=== PATIENT | female | born 2000 ===

== ENCOUNTER 2020-09-13 14:44 | Emergency (ER) | payer MEDICAID ==
--- NOTE | 2020-09-13 15:49 | Emergency Department Report ---
ED Female HPI - General Chief complaint: Vaginal Bleeding Stated complaint: 2MONTHS /BLEEDING Time Seen by Provider: 09/13/20 15:44 Source: patient Mode of arrival: Ambulatory Limitations: No Limitations - History of Present Illness Initial comments: 20-year-old G1, P0 with a last menstrual period of 06/23/20 at approximately 8 weeks gestation presents the ED complaining of lower pelvic cramping with vaginal bleed that began today after she tripped while she was at [employer]. Patient states she did not fall but tripped. Patient states pain began after tripping and bleeding is about moderate. Patient states she took a home test around [place] that was positive and has not been to the OB yet MD Complaint: vaginal bleeding, pelvic pain Severity scale (0 -10): 5 Quality: cramping Consistency: intermittent Improves with: none Worsens with: none Are you Now?: Yes Associated Symptoms: denies: nausea/vomiting, fever/chills, hematuria, shortness of breath, weakness - Related Data Previous Rx's Medication Instructions Recorded Last Taken Type Acetaminophen/Codeine [Tylenol 1 tab PO Q6H #12 tab 09/13/20 Unknown Rx /Codeine # 3 tab] Allergies Allergy/AdvReac Type Severity Reaction Status Date / Time No Known Allergies Allergy Unverified 09/13/20 15:28 ED Review of Systems ROS: Stated complaint: 2MONTHS /BLEEDING Other details as noted in HPI Comment: All other systems reviewed and negative ED Past Medical Hx - Past Medical History Previous Medical History?: No - Surgical History Past Surgical History?: No - Medications Home Medications: Home Medications Medication Instructions Recorded Confirmed Last Taken Type Acetaminophen/Codeine [Tylenol 1 tab PO Q6H #12 tab 09/13/20 Unknown Rx /Codeine # 3 tab] ED Physical Exam - General Limitations: No Limitations General appearance: alert, in no apparent distress - Head Head exam: Present: atraumatic, normocephalic - Eye Eye exam: Present: normal appearance - ENT ENT exam: Present: mucous membranes moist - Neck Neck exam: Present: normal inspection - Respiratory Respiratory exam: Present: normal lung sounds bilaterally. Absent: respiratory distress - Cardiovascular Cardiovascular Exam: Present: regular rate, normal rhythm. Absent: systolic murmur, diastolic murmur, rubs, gallop - GI/Abdominal GI/Abdominal exam: Present: soft, normal bowel sounds. Absent: distended, tenderness, guarding, rebound, mass - Extremities Exam Extremities exam: Present: normal inspection - Back Exam Back exam: Present: normal inspection - Neurological Exam Neurological exam: Present: alert, oriented X3 - Psychiatric Psychiatric exam: Present: normal affect, normal mood - Skin Skin exam: Present: warm, dry, intact, normal color. Absent: rash ED Course Vital Signs 09/13/20 09/13/20 15:25 21:37 Temperature 98.6 F 98 F Pulse Rate 84 78 Respiratory 16 16 Rate Blood Pressure 123/94 Blood Pressure 116/78 [Left] O2 Sat by Pulse 99 100 Oximetry - Reevaluation(s) Reevaluation #1: Patient states that pelvic pain is getting worse. She is crying due to pain. Tylenol with codeine ordered for patient. Ultrasound still pending. Patient in wheelchair in the [facility] waiting room 09/13/20 17:46 ED Medical Decision Making - Lab Data Result diagrams: 09/13/20 15:59 09/13/20 15:59 - Radiology Data Radiology results: report reviewed, image reviewed ULTRASOUND OBSTETRIC INDICATION / CLINICAL INFORMATION: Heavy vaginal bleeding. Clinical Gestational Age (GA) in weeks, days: Unknown TECHNIQUE: Transabdominal. Transvaginal COMPARISON: None available. FINDINGS: Uterus: The uterus measures 9.3 x 4.3 x 5.6 cm. No focal uterine mass identified. The endometrial complex is homogeneously mildly thickened measuring 15 mm in caliber. No gestational sac identified within the uterus. ADNEXA: Both ovaries are well-visualized and have a normal sonographic appearance. Color Doppler demonstrates normal ovarian blood flow bilaterally. FREE FLUID: Trace free fluid is present in the cul-de-sac. ADDITIONAL FINDINGS: None. IMPRESSION: 1. No evidence of gestational sac within the uterus. Endometrial complex is mildly thickened. This is nonspecific and could indicate recent spontaneous versus very early . Correlation with hCG levels is recommended. 2. No adnexal mass. Both ovaries appear unremarkable. Signer Name: Naomy Alvarado MD Signed: 09/13/2020 9:01 PM Workstation Name: [id number] Transcribed By: Dictated By: Naomy Alvarado MD Electronically Authenticated By: Naomy Alvarado MD Signed Date/Time: 09/13/202100 - Medical Decision Making 20-year-old female presents to ED with spontaneous complete miscarriage ED course: Pt received ultra sound, CBC, urinalysis, test and quantitative ED All labs within normal limits, quantitative slightly depleted for dates Ultrasound shows no intrauterine . See reported above Vital signs normalized patient is in no acute distress. I discussed with the patient if follow-up with her [facility]. I discussed all labs and ultrasound findings with the patient. Patient understands instructions and will follow-up with OB within 3 days. Discussed breast and take all medications as prescribed. Bleeding precautions discussed with the patient and her who was with the patient at the time of discharge and discussion. I discussed with the patient that he if bleeding worsens or new symptoms develop to return to ED immediately Patient feeling much better and pain resolved prior to discharge Critical care attestation.: If time is entered above; I have spent that time in minutes in the direct care of this critically ill patient, excluding procedure time. ED Disposition Clinical Impression: Spontaneous , Complete Disposition: TO HOME OR SELFCARE Is pt being admited?: No Does the pt Need Aspirin: No Condition: Stable Instructions: Miscarriage, [id number], Miscarriage, Managing Loss Additional Instructions: Make sure to follow up with the primary care physician as discussed. Take all your medications as you've been prescribed. If you have any worsening symptoms or develop new symptoms please return to ED immediately. Prescriptions: Acetaminophen/Codeine [Tylenol /Codeine # 3 tab] 1 tab PO Q6H #12 tab Referrals: PRIMARY CAREMD [Primary Care Provider] - 3-5 Days [facility] [Provider Group] - 3-5 Days [facility] [Provider Group] - 3-5 Days Forms: Accompanied Note, Work/School Release Form(ED) Time of Disposition: 21:11 Print Language: MONGOLIAN
[2020-09-13 16:17] LABS: Basophils % (Auto) 0.4 % (0.0-1.8); Eosinophils # (Auto) 0.1 K/mm3 (0.0-0.4); Eosinophils % (Auto) 1.9 % (0.0-4.3); Hematocrit 40.6 % (30.3-42.9); Hemoglobin 13.3 gm/dl (10.1-14.3); Lymphocytes # (Auto) 1.6 K/mm3 (1.2-5.4); Lymphocytes % (Auto) 21.6 % (13.4-35.0); Mean Corpuscular HGB Conc 33 % (30-34); Mean Corpuscular Volume 87 fl (79-97); Monocytes # (Auto) 0.5 K/mm3 (0.0-0.8); Monocytes % (Auto) 7.1 % (0.0-7.3); Platelet Count 197 K/mm3 (140-440); Red Blood Count 4.68 M/mm3 (3.65-5.03); Red Cell Distribution Width 15.1 % (13.2-15.2)
[2020-09-13 16:19] LABS: Bilirubin,Urine NEG (Negative); Blood,Urine MOD (Negative); Color,Urine Colorless (Yellow); Protein,Urine <15 mg/dL mg/dL (Negative); Urobilinogen,Urine < 2.0 mg/dL (<2.0); WBC,Urine < 1.0 /HPF (0.0-6.0)
[2020-09-13 16:30] LABS: Blood Urea Nitrogen 7 mg/dL (7-17); Calcium 9.1 mg/dL (8.4-10.2); Hemolysis Index 11
[2020-09-13 16:48] LABS: BUN/Creatinine Ratio 18
[2020-09-13] MEDS ORDERED: ACETAMINOPHEN W/CODEINE 300-30 MG TAB PO ONE (17:51)
--- NOTE | 2020-09-13 21:05 | Ultrasound Report ---
ULTRASOUND OBSTETRIC INDICATION / CLINICAL INFORMATION: Heavy vaginal bleeding. Clinical Gestational Age (GA) in weeks, days: Unknown TECHNIQUE: Transabdominal. Transvaginal COMPARISON: None available. FINDINGS: Uterus: The uterus measures 9.3 x 4.3 x 5.6 cm. No focal uterine mass identified. The endometrial com plex is homogeneously mildly thickened measuring 15 mm in caliber. No gestational sac identified within the uterus. ADNEXA: Both ovaries are well-visualized and have a normal sonographic appearance. Color Doppler demo nstrates normal ovarian blood flow bilaterally. FREE FLUID: Trace free fluid is present in the cul-de-sac. ADDITIONAL FINDINGS: None. IMPRESSION: 1. No evidence of gestational sac within the uterus. Endometrial complex is mildly thickened. This is nonspecific and could indicate recent spontaneous versus very early . Correlation with hCG levels is recommended. 2. No adnexal mass. Both ovaries appear unremarkable. Signer Name: Naomy Alvarado MD Signed: 09/13/2020 9:01 PM Workstation Name: [id number]
[2020-09-13 21:41] VITALS: BP 116/78
== END 2020-09-13 21:41 | disposition home or self-care (01) ==
LOC: ED 14:44
DX: O03.9 Complete or unspecified spontaneous abortion without complication (principal); Z3A.01 Less than 8 weeks gestation of pregnancy; Z79.899 Other long term (current) drug therapy
CPT/HCPCS: 36415; 76801; 76817; 80048; 81001; 84702; 85025; 86900; 86901

== ENCOUNTER 2021-08-25 00:49 | Inpatient (IN) | payer OTHER ==
[2021-08-25 02:40] LABS: Bacteria,Urine 1+ /HPF (Negative); Bilirubin,Urine NEG (Negative); Blood,Urine NEG (Negative); Color,Urine Yellow (Yellow); Mucus,Urine FEW /HPF; Urobilinogen,Urine < 2.0 mg/dL (<2.0)
--- NOTE | 2021-08-25 04:24 | Ultrasound Report ---
ULTRASOUND OBSTETRIC LIMITED ULTRASOUND BIOPHYSICAL PROFILE INDICATION / CLINICAL INFORMATION: TRI. well-being. Clinical Gestational Age (GA) in weeks, days: 38, 6 TECHNIQUE: Transabdominal. COMPARISON: None available. FINDINGS: BREATHING MOVEMENT = 2 GROSS BODY MOVEMENT = 2 TONE = 2 QUALITATIVE AMNIOTIC FLUID VOLUME = 2 TOTAL BIOPHYSICAL SCORE = 8/8 HEART RATE (beats per minute): 109 AMNIOTIC FLUID INDEX (cm) = 19.5 (normal = 7-24 cm) PRESENTATION: Cephalic. ADDITIONAL FINDINGS: None. IMPRESSION: 1. Biophysical Score = 8/8 2. Normal amniotic fluid index of 19.5 cm. Signer Name: Adonis Krueger MD Signed: 08/25/2021 4:19 AM Workstation Name: [id number]
[2021-08-25] MEDS ORDERED: LACTATED RINGERS 1,000 ML IV SCH (05:00)
[2021-08-25] MEDS ORDERED: LIDOCAINE (2%) 20 MG/1 ML VIAL 20 ML MDV INFILTRATI ONE (05:00)
[2021-08-25] MEDS ORDERED: OXYTOCIN 10 UNIT/1 ML INJ IM PRN (05:00)
[2021-08-25] MEDS ORDERED: ePHEDrine SULFATE 50 MG/1 ML INJ IV PRN ×2 (05:00→19:23)
[2021-08-25] MEDS ORDERED: OXYTOCIN DRIP 30 UNITS/500 ML BAG IV SCH ×2 (05:00)
[2021-08-25] MEDS ORDERED: TERBUTALINE 1 MG/1 ML INJ SUB-Q PRN (05:00)
[2021-08-25] MEDS ORDERED: NalbUPHINE 10 MG/1 ML INJ IV PRN (05:00)
[2021-08-25] MEDS ORDERED: CARBOPROST TROMETHAMINE 250 MCG/1 ML INJ IM PRN (05:00)
[2021-08-25] MEDS ORDERED: VANCOMYCIN/NS 1 GM/250 ML 1 GM/250 ML BAG IV SCH (05:00)
[2021-08-25] MEDS ORDERED: LOPERAMIDE 2 MG CAP PO PRN (05:00)
[2021-08-25] MEDS ORDERED: miSOPROStol 200 MCG TAB PR PRN (05:00)
[2021-08-25] MEDS ORDERED: METHYLERGONOVINE MALEATE 0.2 MG/ML VIAL IM PRN (05:00)
[2021-08-25] MEDS ORDERED: ACETAMINOPHEN 325 MG TAB PO PRN (05:00)
--- NOTE | 2021-08-25 05:12 | History and Physical Report ---
History of Present Illness Date of examination: 08/25/21 Date of admission: 08/25/2021 Chief complaint: Decreased movement History of present illness: 21 year old female presents to L&D complaining of decreased movement since yesterday. Patient denies leaking of fluid or vaginal bleeding. Patient denies falls or abdominal trauma. Patient received care at [facility]; partial record is available (full record has been requested). LMP 11/26/20. EDC 09/02/2021. significant for the following: underweight, GBS positive. labs results are not available at this time but they have been requeste d. Past History Past Medical History: other (history of 2 miscarriages) Past Surgical History: no surgical history [facility] History: denies: chlamydia, gonorrhea, hepatitis B, hepatitis C, herpes, HIV, syphilis, trichomonas Family/Genetic History: diabetes, congenital heart defect (patient's sister was born with congenital heart defect) Social history: lives with family, full code. denies: smoking, alcohol abuse, prescription drug abuse, IV drug use - Obstetrical History Expected Date of Delivery: 09/02/21 Actual Gestation: 38 Week(s) 6 Day(s) : 3 Para: 0 Hx # Term Pregnancies: 0 Number of Pregnancies: 0 Spontaneous Abortions: 2 Induced : 0 Number of Living Children: 0 Medications and Allergies Allergies Allergy/AdvReac Type Severity Reaction Status Date / Time Penicillins Allergy Unknown Itching Verified 08/25/21 05:14 Active Meds: Active Medications Acetaminophen (Acetaminophen 325 Mg Tab) 650 mg PO Q4H PRN PRN Reason: Pain, Mild (1-3) Carboprost Tromethamine (Carboprost Tromethamine 250 Mcg/1 Ml Inj) 250 mcg IM ONCE PRN PRN Reason: Uterine Bleeding Ephedrine Sulfate (Ephedrine Sulfate 50 Mg/1 Ml Inj) 10 mg IV Q2M PRN PRN Reason: Hypotension Fentanyl (Fentanyl 100 Mcg/2 Ml Inj) 100 mcg IV Q2H PRN PRN Reason: Pain,Severe (7-10) LABOR PAIN Oxytocin/Sodium Chloride (Pitocin/Ns 30 Unit/500ml) 30 units in 500 mls @ 2 mls/hr IV TITR JAM; Protocol Lactated Ringer's (Lactated Ringers) 1,000 mls @ 125 mls/hr IV DIRECT JAM Oxytocin/Sodium Chloride (Pitocin/Ns 30 Unit/500ml) 30 units in 500 mls @ 40 mls/hr IV TITR JAM; Protocol Vancomycin HCl (Vancomycin/Ns 1 Gm/250 Ml) 1 gm in 250 mls @ 167.007 mls/hr IV Q12H JAM; Protocol Loperamide HCl (Loperamide 2 Mg Cap) 2 mg PO ONCE PRN PRN Reason: give with Hemabate Methylergonovine Maleate (Methylergonovine Maleate 0.2 Mg/Ml Vial) 0.2 mg IM ONCE PRN PRN Reason: Uterine Bleeding Misoprostol (Misoprostol 200 Mcg Tab) 800 mcg MI ONCE PRN PRN Reason: Uterine Bleeding Nalbuphine HCl (Nalbuphine 10 Mg/1 Ml Inj) 10 mg IV Q2H PRN PRN Reason: Pain, Moderate (4-6) Oxytocin (Oxytocin 10 Unit/1 Ml Inj) 10 unit IM ONCE PRN PRN Reason: Uterine Bleeding Terbutaline Sulfate (Terbutaline 1 Mg/1 Ml Inj) 0.25 mg SUB-Q ONCE PRN PRN Reason: Hyperstimulation/Hypertonicity Review of Systems All systems: negative (contractions, decreased movement) - Vital Signs Vital signs: Vital Signs Pulse BP 81 113/68 08/25/21 01:17 08/25/21 01:17 Temp Pulse Resp BP Pulse Ox 81 113/68 08/25/21 01:08/25/21 01:17 - Physical Exam Abdomen: Positive: normal appearance, soft. Negative: distention, tenderness, guarding, rigidity Genitourinary (Female): Positive: normal external genitalia, normal perenium. Negative: perineal/vulvar lesions Vagina: Positive: normal moisture Uterus: Positive: enlarged. Negative: tender Anus/Rectum: Positive: normal perianal skin Extremities: Negative: tenderness, edema - Obstetrical FHR: category 2 FHR comments: FHR baseline 115 with minimal to moderate variability and rare acceleration. Occasional variable FHR deceleration. Uterine Contraction Monitor Mode: External Cervical Dilatation: 2 Cervical Effacement Percentage: 70 (Cephalic presentation confirmed by US) station: 0 Uterine Contraction Pattern: Irregular Uterine Contraction Intensity: Mild Results Abnormal lab results 08/25/21 Range/Units 01:16 Urine WBC (Auto) 45.0 H (0.0-6.0) /HPF U Epithel Cells (Auto) 19.0 H (0-13.0) /HPF All other labs normal. Assessment and Plan A: at 38 weeks, 6 days gestation. Early labor. GBS positive (allergic to PCN). Category 2 FHR tracing. Decreased movement. P: Admit. Continuous EFM. Lateral positioning; IV fluid bolus. GBS prophylaxis. Full record has been requested. Augmentation of labor with Pitocin once full record has been received. Consulted with Dr. Esqueda re: this patient; in agreement with POC.
[2021-08-25] MEDS ORDERED: LACTATED RINGERS 1,000 ML IV ONE (05:23)
[2021-08-25 06:49] LABS: Hematocrit 30.9 % (30.3-42.9); Hemoglobin 9.5 gm/dl (10.1-14.3); Mean Corpuscular HGB Conc 31 % (30-34); Mean Corpuscular Volume 72 fl (79-97); Platelet Count 235 K/mm3 (140-440); Red Cell Distribution Width 18.6 % (13.2-15.2)
[2021-08-25] MEDS ORDERED: hydrOXYzine PAMOATE 25 MG CAP PO STA (09:14)
--- NOTE | 2021-08-25 11:11 | Progress Note ---
Assessment and Plan A: IUP @ 38 6/7 Weeks Category I Tracing Decreased Movement Pruritus + GBS with PCN Allergy P: AROM Internals X 2 Continue Pitocin Induction Vistaril 25mg Po x 1 dose Continue GBS Prophylaxis with Vancomycin Subjective - Subjective Date of service: 08/25/21 Patient reports: new complaints (Around 9AM; patient complians of swelling of lips, itching of neck and back; and a little itching of throat), contractions (mild) Objective - Vital Signs Vital Signs: Vital Signs - 12hr 08/25/21 08/25/21 08/25/21 06:33 06:40 Temperature Pulse Rate 81 64 Respiratory Rate Blood Pressure 113/68 Blood Pressure [Right] O2 Sat by Pulse 100 Oximetry O2 Sat by Pulse 100 Oximetry [ Bilateral Throughout] 08/25/21 08/25/21 08/25/21 06:45 06:50 06:55 Temperature Pulse Rate 63 65 64 Respiratory Rate Blood Pressure Blood Pressure [Right] O2 Sat by Pulse 100 99 99 Oximetry O2 Sat by Pulse Oximetry [ Bilateral Throughout] 08/25/21 08/25/21 08/25/21 06:59 07:00 07:01 Temperature 98.7 F Pulse Rate 64 68 Respiratory 16 Rate Blood Pressure 120/91 Blood Pressure 120/91 [Right] O2 Sat by Pulse 100 99 Oximetry O2 Sat by Pulse 100 Oximetry [ Bilateral Throughout] 08/25/21 08/25/21 08/25/21 07:05 07:10 07:15 Temperature Pulse Rate 62 69 63 Respiratory Rate Blood Pressure Blood Pressure [Right] O2 Sat by Pulse 99 100 99 Oximetry O2 Sat by Pulse Oximetry [ Bilateral Throughout] 08/25/21 08/25/21 08/25/21 07:20 07:25 07:30 Temperature Pulse Rate 65 70 69 Respiratory Rate Blood Pressure Blood Pressure [Right] O2 Sat by Pulse 99 99 99 Oximetry O2 Sat by Pulse Oximetry [ Bilateral Throughout] 08/25/21 08/25/21 08/25/21 07:35 07:40 07:45 Temperature Pulse Rate 69 67 82 Respiratory Rate Blood Pressure Blood Pressure [Right] O2 Sat by Pulse 99 99 98 Oximetry O2 Sat by Pulse Oximetry [ Bilateral Throughout] 08/25/21 08/25/21 08/25/21 07:50 07:55 08:00 Temperature Pulse Rate 75 76 75 Respiratory Rate Blood Pressure Blood Pressure [Right] O2 Sat by Pulse 100 99 100 Oximetry O2 Sat by Pulse Oximetry [ Bilateral Throughout] 08/25/21 08/25/21 08/25/21 08:05 08:10 08:15 Temperature Pulse Rate 72 69 74 Respiratory Rate Blood Pressure Blood Pressure [Right] O2 Sat by Pulse 100 99 99 Oximetry O2 Sat by Pulse Oximetry [ Bilateral Throughout] 08/25/21 08/25/21 08/25/21 08:20 08:25 08:30 Temperature Pulse Rate 69 69 70 Respiratory Rate Blood Pressure Blood Pressure [Right] O2 Sat by Pulse 99 99 98 Oximetry O2 Sat by Pulse Oximetry [ Bilateral Throughout] 08/25/21 08/25/21 08/25/21 08:35 08:39 08:44 Temperature Pulse Rate 65 76 75 Respiratory Rate Blood Pressure Blood Pressure [Right] O2 Sat by Pulse 100 88 98 Oximetry O2 Sat by Pulse Oximetry [ Bilateral Throughout] 08/25/21 08/25/21 08/25/21 08:49 08:54 08:59 Temperature Pulse Rate 80 79 81 Respiratory Rate Blood Pressure 107/69 Blood Pressure [Right] O2 Sat by Pulse 99 99 98 Oximetry O2 Sat by Pulse Oximetry [ Bilateral Throughout] 08/25/21 08/25/21 08/25/21 09:04 09:09 09:26 Temperature Pulse Rate 79 83 82 Respiratory Rate Blood Pressure Blood Pressure [Right] O2 Sat by Pulse 99 98 98 Oximetry O2 Sat by Pulse Oximetry [ Bilateral Throughout] 08/25/21 08/25/21 08/25/21 09:31 09:36 09:41 Temperature Pulse Rate 77 81 71 Respiratory Rate Blood Pressure Blood Pressure [Right] O2 Sat by Pulse 98 99 100 Oximetry O2 Sat by Pulse Oximetry [ Bilateral Throughout] 08/25/21 08/25/21 08/25/21 09:46 09:51 09:56 Temperature Pulse Rate 84 87 80 Respiratory Rate Blood Pressure Blood Pressure [Right] O2 Sat by Pulse 100 98 99 Oximetry O2 Sat by Pulse Oximetry [ Bilateral Throughout] 08/25/21 08/25/21 08/25/21 10:01 10:06 10:11 Temperature Pulse Rate 82 73 73 Respiratory Rate Blood Pressure 117/65 Blood Pressure [Right] O2 Sat by Pulse 98 98 99 Oximetry O2 Sat by Pulse Oximetry [ Bilateral Throughout] 08/25/21 08/25/21 08/25/21 10:16 10:21 10:26 Temperature Pulse Rate 84 74 61 Respiratory Rate Blood Pressure Blood Pressure [Right] O2 Sat by Pulse 98 99 100 Oximetry O2 Sat by Pulse Oximetry [ Bilateral Throughout] 08/25/21 08/25/21 08/25/21 10:30 10:31 10:47 Temperature Pulse Rate 72 74 77 Respiratory Rate Blood Pressure Blood Pressure [Right] O2 Sat by Pulse 92 100 98 Oximetry O2 Sat by Pulse Oximetry [ Bilateral Throughout] 08/25/21 08/25/21 08/25/21 10:52 10:57 11:02 Temperature Pulse Rate 79 77 71 Respiratory Rate Blood Pressure Blood Pressure [Right] O2 Sat by Pulse 100 100 100 Oximetry O2 Sat by Pulse Oximetry [ Bilateral Throughout] - Exam Breasts: normal Cardiovascular: Regular rate Lungs: Clear to auscultation, Normal air movement Abdomen: Present: normal appearance, soft, normal bowel sounds Uterus: Present: normal, firm, fundal height above umbilicus FHR: category 1 Uterine Contraction Monitor Mode: Internal Cervical Dilatation: 2 (Large amount of clear fluid upon AROM at 1055) Cervical Effacement Percentage: 80 station: -1 Uterine Contraction Frequency (min): 1-2.5 min Uterine Contraction Pattern: Regular Uterine Tone Measurement Phase: Resting Uterine Contraction Intensity: Mild Extremities: normal - Labs Labs: Abnormal Labs 08/25/21 08/25/21 01:16 06:32 Hgb 9.5 L MCV 72 L MCH 22 L RDW 18.6 H Urine WBC (Auto) 45.0 H U Epithel Cells (Auto) 19.0 H Laboratory Results - last 24 hr 08/25/21 08/25/21 08/25/21 01:16 06:32 06:32 WBC 8.4 RBC 4.30 Hgb 9.5 L Hct 30.9 MCV 72 L MCH 22 L MCHC 31 RDW 18.6 H Plt Count 235 Urine Color Yellow Urine Turbidity Slightly-cloudy Urine pH 6.0 Ur Specific [place] 1.020 Urine Protein 30 mg/dl Urine Glucose (UA) Neg Urine Ketones Neg Urine Blood Neg Urine Nitrite Neg Urine Bilirubin Neg Urine Urobilinogen < 2.0 Ur Leukocyte Esterase Sm Urine WBC (Auto) 45.0 H Urine RBC (Auto) 2.0 U Epithel Cells (Auto) 19.0 H Urine Bacteria (Auto) 1+ Urine Mucus Few Syphilis IgG Antibody Nonreactive Blood Type Antibody Screen 08/25/21 06:32 WBC RBC Hgb Hct MCV MCH MCHC RDW Plt Count Urine Color Urine Turbidity Urine pH Ur Specific [place] Urine Protein Urine Glucose (UA) Urine Ketones Urine Blood Urine Nitrite Urine Bilirubin Urine Urobilinogen Ur Leukocyte Esterase Urine WBC (Auto) Urine RBC (Auto) U Epithel Cells (Auto) Urine Bacteria (Auto) Urine Mucus Syphilis IgG Antibody Blood Type O POSITIVE Antibody Screen Negative
[2021-08-25] MEDS: fentaNYL 100 MCG/2 ML INJ IV PRN ×2 (14:45→17:30)
[2021-08-25] MEDS ORDERED: NALOXONE 2 MG/2 ML INJ IV PRN (19:23)
[2021-08-25] MEDS ORDERED: fentaNYL-BUPIV 2 MCG/ML-0.125% 200 MCG/100 ML BAG EPIDURAL SCH (20:00)
--- NOTE | 2021-08-25 20:08 | Anesthesia Consultation ---
Anesthesia Consult and Med Hx Date of service: 08/25/21 - Airway Anesthetic Teeth Evaluation: Good ROM Head & Neck: Adequate Mental/Hyoid Distance: Adequate Mallampati Class: Class II Intubation Access Assessment: Good - Pulmonary Exam CTA: Yes - Cardiac Exam Cardiac Exam: RRR - Pre-Operative Health Status ASA Pre-Surgery Classification: ASA2 Proposed Anesthetic Plan: Epidural - Pulmonary Hx Smoking: No Hx Asthma: No Hx Respiratory Symptoms: No SOB: No COPD: No Home Oxygen Therapy: No Hx Pneumonia: No Hx Sleep Apnea: No - Cardiovascular System Hx Hypertension: No Hx Coronary Artery Disease: No Hx Heart Attack/AMI: No Hx Angina: No Hx Percutaneous Transluminal Coronary Angioplasty (PTCA): No Hx Cardia Arrhythmia: No Hx Pacemaker: No Hx Internal Defibrillator: No Hx Valvular Heart Disease: No Hx Heart Murmur: No Hx Peripheral Vascular Disease: No - Central Nervous System Hx Neuromuscular Disorder: No Hx Seizures: No CVA: No Hx Back Pain: Yes Hx Psychiatric Problems: No - Gastrointestinal Hx Ulcer: No Hx Gastroesophageal Reflux Disease: No - Endocrine Hx Renal Disease: No Hx End Stage Renal Disease: No Hx Cirrhosis: No Hx Liver Disease: No Hx Insulin Dependent Diabetes: No Hx Non-Insulin Dependent Diabetes: No Hx Thyroid Disease: No Hx Hypothyroidism: No Hx Hyperthyroidism: No - Hematic Hx Anemia: No Hx Sickle Cell Disease: No - Other Systems Hx Alcohol Use: No Hx Substance Use: No Hx Cancer: No Hx Obesity: No
--- NOTE | 2021-08-25 20:10 | Progress Note ---
Labor Epidural - Labor Epidural Start Time: 19:29 Stop Time: 19:52 Performed by:: GILA SALAS Procedure: Patient is requesting epidural for labor pain. H&P and labs reviewed. Procedure explained, questions answered, consent obtained. Patient placed in sitting position with monitors applied. Timeout performed immediately before start of procedure. Prep/drape in usual sterile fashion. Skin localized 3 mL 1% lidocaine at L[3]-L[4] interspace. 17-gauge Touhy epidural needle advanced to SOFI with saline x 3attempts at [6] cm. No blood/CSF noted via epidural needle. Epidural catheter advanced to [9] cm. Negative aspiration for blood and CSF via catheter, negative response to test dose 3 ml 1.5% lidocaine w/ epi. Sterile dressing applied followed by tape reinforcement. Patient tolerated procedure well. No immediate complications noted.
[2021-08-25] MEDS ORDERED: MINERAL OIL 30 ML ORAL LIQD ONE (20:12)
[2021-08-25] MEDS ORDERED: HYDROcodone/ACETAMINOPHEN 5-325 MG TAB PO PRN (21:11)
[2021-08-25] MEDS ORDERED: diphenhydrAMINE 25 MG CAP PO PRN (21:11)
[2021-08-25] MEDS ORDERED: BENZOCAINE/MENTHOL 20/0.5% TOP SPRAY 56 GM TP PRN (21:11)
[2021-08-25] MEDS ORDERED: WITCH HAZEL/ GLYCERIN PAD TP PRN (21:11)
[2021-08-25] MEDS ORDERED: LANOLIN/ZINC/DIMETHICONE (LANSINOH) 7 GM TP PRN (21:11)
--- NOTE | 2021-08-25 21:20 | Procedure Note ---
OB Delivery Note - Delivery Date of Delivery: 08/25/21 (2040) Surgeon: DARRYL WILSON Estimated blood loss: 200cc - Vaginal Delivery presentation: vertex, compound Intrapartum events: none Delivery induction: oxytocin Delivery augmentation: rupture of membranes, pitocin Delivery monitor: internal FHT, internal uterine Route of delivery: Delivery placenta: spontaneous Delivery cord: 3 umbilical vessels Episiotomy: none Delivery laceration: 1st degree Delivery repair: vicryl Anesthesia: epidural Delivery comments: of a live 6'12 male infant with a left hand compound presentation over first degree right labial and vaginal lacerations under epidural anesthesia at 2040 on 08/25/2021. directly to maternal abd/chest, skin to skin contact. Vaginal lacerations repaired with 2-[address]-1. Spontaneous delivery of placenta complete and intact with Pierre side presenting at 2055. Fundus is firm and midline located 4 below the U. Lochia is scant. GBS prophylaxis x 1. Delayed cord clamping and cutting; Cord cut by Father of the Baby. Cord blood collected; Placenta discarded. - A at 1 minute: 8 at 5 minutes: 9 Infant Gender: Male (6'12)
[2021-08-25] MEDS: IBUPROFEN 600 MG TAB PO SCH (22:09)
[2021-08-26] MEDS: IBUPROFEN 600 MG TAB PO SCH ×4 (03:52→23:06)
--- NOTE | 2021-08-26 09:27 | Progress Note ---
Assessment and Plan A: S/P P: Continue routine pp orders D/C home tomm if stable Subjective - Subjective Date of service: 08/26/21 Principal diagnosis: s/p Patient reports: appetite normal, voiding normally, pain well controlled, ambulating normally : doing well, bottle feeding Objective - Vital Signs Latest vital signs: Vital Signs Temp Pulse Resp BP BP Pulse Ox Pulse Ox 08/26/21 07:41 98.4 F 69 20 96/68 99 08/26/21 07:30 98 08/26/21 05:00 97.7 F 70 18 114/69 97 08/26/21 03:52 18 08/25/21 23:47 98.5 F 80 103/61 08/25/21 23:34 100 08/25/21 22:08 75 99 08/25/21 22:03 75 99 08/25/21 21:58 77 106/67 99 08/25/21 21:53 80 100 08/25/21 21:48 82 99 08/25/21 21:44 99.1 F 18 08/25/21 21:43 81 99 08/25/21 21:38 73 99 08/25/21 21:33 78 99 08/25/21 21:28 83 114/61 98 08/25/21 21:23 80 99 08/25/21 21:20 90 93 08/25/21 21:18 75 100 08/25/21 21:13 90 100 08/25/21 21:08 86 100 08/25/21 21:03 90 100 08/25/21 20:59 80 L 08/25/21 20:58 93 H 116/56 08/25/21 20:38 113 H 142/100 08/25/21 20:30 103 H 130/77 98 08/25/21 20:25 85 97 08/25/21 20:23 104 H 138/64 08/25/21 20:20 94 H 98 08/25/21 20:15 88 99 08/25/21 20:13 100 H 127/79 08/25/21 20:10 99 H 94 08/25/21 20:09 84 131/81 08/25/21 20:05 82 99 08/25/21 20:04 81 123/77 08/25/21 20:00 81 98 08/25/21 19:57 87 129/70 01/17/22 19:55 92 H 130/79 98 08/25/21 19:53 92 H 127/75 08/25/21 19:51 96 H 127/79 08/25/21 19:50 98 H 99 08/25/21 19:48 99 H 93 08/25/21 19:45 86 99 08/25/21 19:40 91 H 97 08/25/21 19:35 95 H 99 08/25/21 19:33 96 H 142/100 08/25/21 19:30 97 H 95 08/25/21 19:25 94 H 99 08/25/21 19:20 93 H 100 08/25/21 19:15 93 H 99 08/25/21 19:10 85 100 08/25/21 19:06 98.3 F 19 08/25/21 19:05 91 H 100 08/25/21 19:03 100 08/25/21 18:52 85 142/87 08/25/21 18:39 98.3 F 08/25/21 17:09 97.8 F 08/25/21 17:06 86 99 08/25/21 17:01 76 99 08/25/21 16:56 93 H 97 08/25/21 16:52 80 144/82 94 08/25/21 16:51 83 97 08/25/21 16:46 73 97 08/25/21 16:41 91 H 99 08/25/21 16:36 85 98 08/25/21 16:31 85 98 08/25/21 16:26 80 99 08/25/21 16:21 93 H 98 08/25/21 16:16 74 100 08/25/21 16:11 70 98 08/25/21 16:06 79 100 08/25/21 16:01 80 99 08/25/21 15:56 75 100 08/25/21 15:51 82 136/94 99 08/25/21 15:46 78 99 08/25/21 15:41 77 98 08/25/21 15:36 70 99 08/25/21 15:31 77 99 08/25/21 15:26 74 99 08/25/21 15:21 74 98 08/25/21 15:16 75 99 08/25/21 15:11 78 97 08/25/21 15:06 75 98 08/25/21 15:01 76 97 08/25/21 14:58 78 17 112/70 98 08/25/21 14:56 80 97 08/25/21 14:51 78 112/70 98 08/25/21 14:46 79 100 08/25/21 14:41 78 100 08/25/21 14:36 74 99 08/25/21 14:31 76 99 08/25/21 14:26 71 99 08/25/21 14:21 76 98 08/25/21 14:16 77 99 08/25/21 14:11 72 99 08/25/21 14:06 80 99 08/25/21 14:01 72 98 08/25/21 13:56 74 100 08/25/21 13:51 83 115/74 96 08/25/21 13:50 74 92 08/25/21 13:46 74 98 08/25/21 13:41 77 98 08/25/21 13:39 98.3 F 18 08/25/21 13:22 65 98 08/25/21 13:17 65 99 08/25/21 13:12 75 99 08/25/21 13:07 75 100 08/25/21 13:02 75 100 08/25/21 12:57 68 98 08/25/21 12:52 80 118/77 100 08/25/21 12:51 68 111/71 08/25/21 12:47 75 98 08/25/21 12:42 75 98 08/25/21 12:37 66 98 08/25/21 12:32 75 98 08/25/21 12:27 67 99 08/25/21 12:22 82 100 08/25/21 12:17 70 100 08/25/21 12:12 72 100 08/25/21 12:07 78 99 08/25/21 12:02 77 100 08/25/21 11:57 77 99 08/25/21 11:52 66 99 08/25/21 11:51 71 115/71 08/25/21 11:47 68 99 08/25/21 11:42 76 99 08/25/21 11:37 71 100 08/25/21 11:32 73 99 08/25/21 11:30 67 127/86 08/25/21 11:27 66 99 08/25/21 11:22 70 100 08/25/21 11:17 66 100 08/25/21 11:12 68 100 08/25/21 11:07 70 99 08/25/21 11:02 71 100 08/25/21 10:57 77 100 08/25/21 10:52 79 100 08/25/21 10:47 77 98 08/25/21 10:31 74 100 08/25/21 10:30 72 92 08/25/21 10:26 61 100 08/25/21 10:21 74 99 08/25/21 10:16 84 98 08/25/21 10:11 73 99 08/25/21 10:06 73 98 08/25/21 10:01 82 117/65 98 08/25/21 09:56 80 99 08/25/21 09:51 87 98 08/25/21 09:46 84 100 08/25/21 09:41 71 100 08/25/21 09:36 81 99 08/25/21 09:31 77 98 08/25/21 09:26 82 98 Intake and Output 08/25/21 08/26/21 08/26/21 22:59 06:59 14:59 Intake Total 62.167 240 Output Total 400 Balance -337.833 240 Intake: IV 62.167 PITOCin/NS 30 UNIT/500ML 62.167 30 units In 500 ml @ 2 mls/hr IV TITR JAM Rx#: [id number] Intake, Free Water 240 Output: Urine 400 Indwelling Catheter 400 Other: Total, Output Amount 400 # Voids Void 300 Estimated Blood Loss 200 - Exam Breasts: Present: normal Abdomen: Present: normal appearance, soft, normal bowel sounds Vulva: both: normal Uterus: Present: normal, firm, fundal height below umbilicus Extremities: Present: normal Incision: Present: normal, intact
--- NOTE | 2021-08-26 09:31 | Discharge Summary ---
Providers - Providers Date of Admission: 08/25/21 05:01 Date of discharge: 08/27/21 Attending physician: IWONA MEYERS Primary care physician: IWONA MEYERS Hospitalization Reason for admission: active labor, IUP at term Delivery: Episiotomy: none Laceration: 1st degree Incision: normal, intact Other procedures: none complications: none Discharge diagnosis: IUP at term delivered Carlos baby: male Hospital course: Pt was admitted to [facility] in labor and had a w/o pp complications. See H&P, delivery summary, and pp notes. Condition at discharge: Stable Disposition: HOME / SELF CARE / HOMELESS Plan - Discharge Medications Prescriptions: Ibuprofen [Motrin 600 MG tab] 600 mg PO Q6H PRN #30 tablet PRN Reason: Menstrual Cramps - Provider Discharge Summary Activity: routine, no sex for 6 weeks, no heavy lifting 4 weeks, no strenuous exercise Diet: routine Instructions: routine Additional instructions: [] Smoking cessation referral if applicable(refer to patient education folder for contact #) [] Refer to [facility]'s [facility] Booklet Call your doctor immediately for: * Fever > 100.5 * Heavy vaginal bleeding ( >1 pad per hour) * Severe persistent headache * Shortness of breath * Reddened, hot, painful area to leg or breast * Drainage or odor from incision. * Keep incision clean and dry at all times and follow doctor's instructions regarding bathing/showering - Follow up plan Follow up: IWONA MEYERS MD [Primary Care Provider] - 6 Weeks
[2021-08-26 09:51] LABS: Hematocrit 25.3 % (30.3-42.9); Hemoglobin 7.7 gm/dl (10.1-14.3)
[2021-08-26] MEDS: FERROUS SULFATE 325 MG TAB PO SCH ×2 (10:30→23:06)
[2021-08-26] MEDS: PRENATAL VIT27-FE FUMARATE-FOLIC ACID VIT TAB PO SCH (10:30)
--- NOTE | 2021-08-26 14:50 | Post Anesthesia Evaluation ---
- Post Anesthesia Evaluation Patient Participated: Yes Airway Patent: Yes Stable Respiratory Function: Yes Nausea/Vomiting: No Temp > 96.8F: Yes Pain Manageable: Yes Adequeate Hydration: Yes Anesthesia Complications: No Block Receding Appropriately: Yes Patient on Ventilator: No
[2021-08-26 21:27] LABS: Basophils % (Auto) 0.3 % (0.0-1.8); Eosinophils # (Auto) 0.1 K/mm3 (0.0-0.4); Eosinophils % (Auto) 0.7 % (0.0-4.3); Hematocrit 29.3 % (30.3-42.9); Hemoglobin 8.8 gm/dl (10.1-14.3); Lymphocytes # (Auto) 2.2 K/mm3 (1.2-5.4); Lymphocytes % (Auto) 16.2 % (13.4-35.0); Mean Corpuscular HGB Conc 30 % (30-34); Mean Corpuscular Volume 73 fl (79-97); Monocytes # (Auto) 0.9 K/mm3 (0.0-0.8); Monocytes % (Auto) 6.6 % (0.0-7.3); Platelet Count 217 K/mm3 (140-440); Red Blood Count 4.01 M/mm3 (3.65-5.03); Red Cell Distribution Width 19.1 % (13.2-15.2)
[2021-08-27] MEDS: IBUPROFEN 600 MG TAB PO SCH ×2 (05:32→12:11)
[2021-08-27] MEDS ORDERED: TETANUS,DIPH,PERTUSS(ACELL) VACCINE 0.5 ML SYRINGE IM ONE (06:00)
[2021-08-27 11:42] VITALS: BP 120/75
[2021-08-27] MEDS: PRENATAL VIT27-FE FUMARATE-FOLIC ACID VIT TAB PO SCH (12:11)
[2021-08-27] MEDS: FERROUS SULFATE 325 MG TAB PO SCH (12:11)
== END 2021-08-27 13:00 | disposition home or self-care (01) | DRG 775 ==
LOC: TRG 00:49 → APU 00:53 → LD 05:01 → TRG 05:01 → OB 22:26
PROVIDERS: ADMIT Obstetrics & Gynecology; ATTEND Obstetrics & Gynecology
PROC: 10E0XZZ Delivery of Products of Conception, External Approach (ICD-10-PCS; principal; 2021-08-25)
PROC: 10907ZC Drainage of Amniotic Fluid, Therapeutic from Products of Conception, Via Natural or Artificial Opening (ICD-10-PCS; 2021-08-25)
PROC: 3E033VJ Introduction of Other Hormone into Peripheral Vein, Percutaneous Approach (ICD-10-PCS; 2021-08-25)
PROC: 0HQ9XZZ Repair Perineum Skin, External Approach (ICD-10-PCS; 2021-08-25)
PROC: 3E0R3BZ Introduction of Anesthetic Agent into Spinal Canal, Percutaneous Approach (ICD-10-PCS; 2021-08-25)
PROC: 00HU33Z Insertion of Infusion Device into Spinal Canal, Percutaneous Approach (ICD-10-PCS; 2021-08-25)
PROC: 3E0234Z Introduction of Serum, Toxoid and Vaccine into Muscle, Percutaneous Approach (ICD-10-PCS; 2021-08-27)
DX: O76 Abnormality in fetal heart rate and rhythm complicating labor and delivery (principal); O99.824 Streptococcus B carrier state complicating childbirth; Z3A.38 38 weeks gestation of pregnancy; Z37.0 Single live birth; O70.0 First degree perineal laceration during delivery; Z20.822 Contact with and (suspected) exposure to COVID-19; Z23 Encounter for immunization
CPT/HCPCS: 36415; 76815; 76819; 81001; 85014; 85018; 85025; 85027; 86592; 86850; 86900; 86901; 87086; 90471; 90715; 99211; G0378; J3490; G0463; J2590; J3010; J3370; J7120; Q0177; U0003